=== PATIENT | female | born 1935 | race Asian ===

== ENCOUNTER 2017-01-30 13:57 | Emergency (ER) | payer OTHER ==
[~2017-01-30] VITALS: Ht 149.9 cm; Wt 45.4 kg
[2017-01-30 14:00] VITALS: BP_SYST 106
--- NOTE | 2017-01-30 14:00 | NUR ---
Patient to ER bed 02 to gown for evaluation. Side rails up. Report given to SEBAS.
--- NOTE | 2017-01-30 14:06 | NUR ---
ER at bedside examining patient.
[2017-01-30] MEDS ORDERED: NACL 0.9% 1,000 ML IV ONE (14:10)
[2017-01-30] MEDS ORDERED: MORPHINE 4 MG/ML INJ. SYRINGE IVP ONE ×2 (14:15→15:45)
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
[2017-01-30 14:48] LABS: BASOPHILS % (AUTO) 0.2 % (0.0-2.0); EOSINOPHILS % (AUTO) 0.5 % (0.0-4.0); HEMATOCRIT 34.3 % (36-48); HEMOGLOBIN 11.6 g/dL (12.0-16.0); LYMPHOCYTES # (AUTO) 0.5 K/uL (1.0-5.5); LYMPHOCYTES % (AUTO) 7.3 % (20.5-51.5); MEAN CORPUSCULAR HEMOGLOBIN 32 pg (27-31); MEAN CORPUSCULAR HGB CONC 34 % (32-36); MEAN CORPUSCULAR VOLUME 93 fL (79.0-98.0); MONOCYTES # (AUTO) 0.2 K/uL (0.0-1.0); NEUTROPHILS # (AUTO) 6.4 K/uL (1.8-7.7); PLATELET COUNT (AUTO) 179 K/uL (130-430); RED BLOOD CELL COUNT(AUTO) 3.68 MIL/uL (4.2-6.2); RED CELL DISTRIBUTION WIDTH 12.6 % (9.0-15.0); WHITE BLOOD COUNT (AUTO) 7.1 K/uL (4.8-10.8)
[2017-01-30 14:53] LABS: ANION GAP 5 (5-15); CALCIUM 8.6 mg/dL (8.4-11.0); CHLORIDE 102 mmol/L (98-107); CREATININE 0.99 mg/dL (0.55-1.30); GLUCOSE 119 mg/dL (70-99); SODIUM SERUM 139 mmol/L (136-145); UREA NITROGEN, BLOOD 22 mg/dL (8-21)
[2017-01-30 14:56] LABS: PROTHROMBIN TIME 10.6 SECS (9.5-12.5)
[2017-01-30 14:57] LABS: ALANINE AMINOTRANSFERASE 110 U/L (12-78); ALBUMIN 3.7 g/dL (3.4-4.8); AMYLASE 166 U/L (0-100); ASPARTATE AMINOTRANSFERASE 152 U/L (10-37); LIPASE 615 U/L (73-393); TOTAL BILIRUBIN 0.7 mg/dL (0.0-1.0)
[2017-01-30] MEDS ORDERED: POTASSIUM CHLORIDE 10 MEQ TAB.PRT.SR PO ONE (15:00)
--- NOTE | 2017-01-30 15:00 | NUR ---
Pt went to CT in stable condition
[2017-01-30 15:02] LABS: POTASSIUM 2.9 mmol/L (3.5-5.1)
--- NOTE | 2017-01-30 15:09 | NUR ---
Report endorsed to Ross
--- NOTE | 2017-01-30 15:30 | NUR ---
PATIENT BACK FROM CT-MOVING ALL EXTREMITIES, PATIENT PLACED ON LONG BOARD, AND SPINAL MOTION RESTRICTION PLACED. PATIENT CONTINUES TO BE ABLE TO MOVE ALL EXTREMITIES. 2ND IV STARTED BY MATT. SOLUMEDROL 125MG GIVEN BY MATT FERGUSON.
[2017-01-30] MEDS ORDERED: methylPREDNISolone SOD SUCC/PF 62.5 MG/ML VIAL ONE (15:35)
[2017-01-30] MEDS ORDERED: MORPHINE 2 MG/ML INJ. SYRINGE IVP ONE (15:45)
[2017-01-30] MEDS ORDERED: methylPREDNISolone SOD SUCC/PF 62.5 MG/ML VIAL IVP ONE (15:45)
--- NOTE | 2017-01-30 16:00 | NUR ---
PATIENT RESTING QUIETLY IN NAD, VITAL SIGNS STABLE
[2017-01-30 16:01] LABS: BILIRUBIN,URINE NEGATIVE (NEGATIVE); BLOOD, URINE 3+ (NEGATIVE); COLOR,URINE YELLOW (YELLOW); GLUCOSE,URINE NEGATIVE (NEGATIVE); KETONES,URINE NEGATIVE (NEGATIVE); LEUKOCYTE ESTERASE ,URINE NEGATIVE (NEGATIVE); NITRITE, URINE NEGATIVE (NEGATIVE); PROTEIN URINE 1+ (NEGATIVE); UROBILINOGEN,URINE 0.2 (0.2-1.0)
[2017-01-30 16:02] LABS: CLARITY/URINE HAZY (CLEAR)
[2017-01-30 16:07] LABS: BACTERIA,URINE FEW /HPF (None Seen); MUCUS,URINE 1+ /LPF (None Seen); RBC,URINE 20-50 /HPF (0-3); WBC,URINE 0-3 /HPF (0-3)
[2017-01-30 16:20] VITALS: BP_SYST 117
--- NOTE | 2017-01-30 16:43 | NUR ---
[facility] is here to picker packer the pt
[2017-01-30] MEDS ORDERED: HYDROmorphone 1 MG INJ. 1 MG/ML AMPUL IVP ONE (17:15)
--- NOTE | 2017-01-30 17:21 | NUR ---
Patient to be transferred to [facility]. Is being transferred due to higher level of care. Receiving facility has accepting physician and available space. ER physician has signed transfer form. Patient or responsible constitution party has agreed to transfer and signed form. Patient belongings inventoried and will be sent with patient. Copy of nursing notes, lab reports, EKG, Physicians Orders and X-rays to be sent with patient. Report called to LOAN at receiving facility. Receiving physician is JOSEFINA. [facility] has been called for transfer. ETA is NOW.
== END 2017-01-30 17:21 | disposition short-term general hospital (02) ==
LOC: SED 13:57
DX: S12.600A Unspecified displaced fracture of seventh cervical vertebra, initial encounter for closed fracture (principal); S22.019A Unspecified fracture of first thoracic vertebra, initial encounter for closed fracture; E87.6 Hypokalemia; R53.1 Weakness; V43.62XA Car passenger injured in collision with other type car in traffic accident, initial encounter; Y93.89 Activity, other specified; Y92.410 Unspecified street and highway as the place of occurrence of the external cause; Y99.8 Other external cause status
CPT/HCPCS: 36415; 71010; 72125; 72131; 80053; 81000; 82150; 83690; 85025; 85610; 85730; 96361; 96374; 96375; 96376; 99285; J1170; J2270 ×2; J2930; J7030; 93005